=== PATIENT | male | born 1945 | race Caucasian/White ===

== ENCOUNTER → 2016-05-26 | Outpatient (CLI) | payer OTHER | END | disposition home or self-care (01) | LOC: EDBD → PCVCCLINIC 12:59 | PROVIDERS: ATTEND Internal Medicine | DX: E78.5 Hyperlipidemia, unspecified (principal); I48.92 Unspecified atrial flutter; I10 Essential (primary) hypertension | CPT/HCPCS: 93005; G0463 ==

== ENCOUNTER → 2016-06-03 | Outpatient (CLI) | payer OTHER ==
[~2016-06-03] MED LIST: REGADENOSON 0.4 MG/5 ML DISP.SYRIN. IV ONE
== END | disposition home or self-care (01) ==
LOC: EDBD → PCVCIMAG 08:08
PROVIDERS: ATTEND Internal Medicine Cardiovascular Disease
DX: I48.92 Unspecified atrial flutter (principal); E78.5 Hyperlipidemia, unspecified; I10 Essential (primary) hypertension; I34.0 Nonrheumatic mitral (valve) insufficiency
CPT/HCPCS: 78452; 93005; 93017; 93306; A9500; G0463; J2785

== ENCOUNTER → 2019-02-03 | Outpatient (CLI) | payer BC | END | disposition home or self-care (01) | LOC: PCVCCLINIC 13:30 | PROVIDERS: ATTEND Internal Medicine Cardiovascular Disease | DX: E78.1 Pure hyperglyceridemia (principal); I34.0 Nonrheumatic mitral (valve) insufficiency; I10 Essential (primary) hypertension; G47.30 Sleep apnea, unspecified; R07.9 Chest pain, unspecified; R06.02 Shortness of breath | CPT/HCPCS: 36415; 80061; 93005; G0463 ==

== ENCOUNTER → 2019-02-17 | Outpatient (CLI) | payer BC ==
--- NOTE | 2019-02-17 18:35 | PCVCIMAG ---
APPROVED REPORT Study performed: 02/17/2019 11:31:00 EXAM: Comprehensive 2D, Doppler, and color-flow Echocardiogram Patient Location: Echo lab Room #: 2Status: routine BSA: 2.30 HR: 48 bpmBP: 148/60 mmHg Rhythm: NSR Other Information Study Quality: Adequate Risk Factors: Cardiac Risk Factors: HTN, Hyperlipidemia Indications Aortic Valve Disease Mitral Valve Disease 2D Dimensions IVSd: 9.20 (7-11mm)LVOT Diam: 20.14 (18-24mm) LVDd: 58.63 mm PWd: 11.37 (7-11mm)Ascending Ao: 35.16 (22-36mm) LVDs: 34.64 (25-40mm) Left Atrium: 42.17 (27-40mm) Aortic Root: 31.36 mm LV Single Plane 4CH: 63.70 % LV Single Plane 2CH: 76.72 % Biplane EF: 70.1 % Volumes Left Atrial Volume (Systole) Single Plane 4CH: 73.79 mLSingle Plane 2CH: 63.44 mL Biplane LA Volume: 70.00 mLLA ESV Index: 30.00 mL/m2 Aortic Valve AoV Peak Lefty.: 1.97 m/s AO Peak Gr.: 15.86 mmHgLVOT Max P.56 mmHg AO Mean Gr.: 8.22 mmHgLVOT Mean P.61 mmHg AO V2 Mean: 1.37 m/sLVOT Max V: 0.91 m/s AO V2 VTI: 47.23 cmLVOT Mean V: 0.60 m/s ALINA (VTI): 1.52 [id number] V1 VTI: 22.58 cm ALINA Vmax: 1.48 cm2 SV (LVOT): 71.87 mL Mitral Valve E/A Ratio: 1.1 MV Decel. Time: 219.67 ms MV E Max Lefty.: 0.82 m/s MV A Lefty.: 0.74 m/s IVRT: 77.85 ms TDI E/Lateral E': 10.25E/Medial E': 13.67 Medial E' Lefty.: 0.06 m/s Lateral E' Lefty.: 0.08 m/s Pulmonary Valve PV Peak Lefty.: 1.15 m/sPV Peak Gr.: 5.30 mmHg Pulmonary Vein P Vein S: 0.57 m/sP Vein A: 0.23 m/s P Vein D: 0.59 m/sP Vein A Dur.: 117.6 msec P Vein S/D Ratio: 0.97 Tricuspid Valve TR Peak Lefty.: 2.25 m/s TR Peak Gr.: 20.18 mmHg TV Vmax: 0.69 m/sPA Pressure: 27.00 mmHg Left Ventricle Left ventricle is mildly dilated. There is normal LV segmental wall motion. Borderline concentric left ventricular hypertrophy. The overall left ventricular systolic function appears normal. LVEF is 70%. The left ventricular diastolic function is normal. Right Ventricle The right ventricle is normal size. The right ventricular systolic function is normal. Atria The left atrium size is normal. Right atrium is mildly dilated. Aortic Valve Aortic valve is trileaflet. Aortic valve leaflets are mildly sclerotic with slightly reduced extention No aortic regurgitation is present. Mild aortic stenosis. Highest mean aortic valve gradient is 8.2 mmHg. Peak aortic valve gradient is 15.5_mmHg. Calculated ALINA by the continuity equation is 1.6_cm2. Mitral Valve The mitral valve is normal in structure. Trace mitral regurgitation. No evidence of mitral valve stenosis. Tricuspid Valve The tricuspid valve is normal in structure. Trace to mild tricuspid regurgitation with a PA pressure of 27 mmHg. Pulmonic Valve The pulmonary valve is normal in structure. Mild pulmonic regurgitation. Great Vessels The aortic root is normal in size. The ascending aorta is normal in size. IVC is normal in size and collapses >50% with inspiration. Pericardium There is no pericardial effusion. There is no pleural effusion. <Conclusion> Left ventricle is mildly dilated. Borderline concentric left ventricular hypertrophy. LVEF is 70%. The left ventricular diastolic function is normal. The right ventricle is normal size. Right atrium is mildly dilated. Aortic valve is trileaflet. Aortic valve leaflets are mildly sclerotic with slightly reduced extention Mild aortic stenosis. Highest mean aortic valve gradient is 8.2 mmHg. Peak aortic valve gradient is 15.5_mmHg. Calculated ALINA by the continuity equation is 1.6_cm2. Trace mitral regurgitation. Trace to mild tricuspid regurgitation with a PA pressure of 27 mmHg. The aortic root is normal in size. There is no pericardial effusion.
--- NOTE | 2019-02-17 18:36 | PCVCIMAG ---
APPROVED REPORT Imaging Protocol: Rest Tc-99m/Stress Tc-99m 1 day Study performed: 02/17/2019 12:44:02 Indication: Abnormal EKG, Atrial Fibrillation, Chest pain, Dyspnea Patient Location: Out-Patient Stress Nurse: Florence Perez RN SD Tech:Mnoika Powell [facility] Ht: 6 ft 0 in Wt: 240 lbs BSA: 2.30 m2 HR: 55 bpm BP: 164/72 mmHg BMI: 32.5 Rhythm: Sinus Bradycardia with NSST - T wave abnormalities Medical History Medical History: Hyperlipidemia Medications: Metoprolol, Dexilant, Pradaxa, Irbesartan, Pravastatin, Amlodipine Allergies: No known drug allergies Cardiac Risk Factors: Age Pretest Chest Pain Characteristics: No chest pain Exercise History: Indeterminate Meds Held (24 hrs): Metoprolol Resting Data Rest SPECT myocardial perfusion imaging was performed in supine position 45 minutes following the intravenous injection of 9.1 mCi of Tc-99m Sestamibi. Time of rest injection: 1220 Date: 02/17/2019 Administration Route: IV Administration Site: Right Hand Pharmacologic Stress Pharmacologic stress test was performed by injecting Regadenoson 0.4 mg IV push over 10-15 seconds immediately followed by the intravenous injection of 35.5 mCi of Tc-99m Sestamibi. Time of stress injection: 1315 Date: 02/17/2019 Administration Route: IV Administration Site: Right Hand Gated Stress SPECT was performed 45 minutes after stress injection. The images were gated to evaluate regional wall motion and calculate left ventricular ejection fraction. Stress Test Details Stress Test: Pharmacologic stress testing performed using 0.4 mg of regadenoson per 5 mL given IV over 10 seconds. Reason for pharmacologic stress test: physical limitation. HRMax Heart Rate (APMHR): 147 bpm Resting HR: 55 bpmTarget HR (85% APMHR): 124 bpm Max HR Achieved: 75 bpm % of APMHR: 51 HR response to stress: 164 BP Resting BP: 72/132 mmHg Max BP: 62/142 mmHg Recovery BP: 65/ mmHg ECG Resting ECG: Sinus Bradycardia with NSST - T wave abnormalities Stress ECG: Sinus Rhythm, nonspecific ST-T abnormalities Recovery ECG: Sinus Rhythm, nonspecific ST-T abnormalities Clinical Reason for Termination: Completed protocol Stress Symptoms: Dyspnea, Lightheaded Symptoms resolved during recovery. Stress ECG Conclusion ECG: Non-ischemic Study Quality Study: Good Study Data Post stress, the left ventricular ejection was 69%.. SSS: 1 SRS: 0 SDS: 1 TID = 1.06. Perfusion No evidence of stress induced ischemia or prior myocardial infarction. Wall Motion Normal left ventricular size and function with no regional wall motion abnormalities. Nuclear Conclusion No evidence of stress induced ischemia or prior myocardial infarction. Normal left ventricular size and function with no regional wall motion abnormalities. Post stress, the left ventricular ejection was 69%. No change since prior study dated May 2016. Interpreted by: Stuart Vaca MD Electronically Approved: 02/17/2019 15:17:37 <Conclusion> ECG: Non-ischemic
== END | disposition home or self-care (01) ==
LOC: PCVCIMAG 11:30
PROVIDERS: ATTEND Internal Medicine Cardiovascular Disease
DX: I08.8 Other rheumatic multiple valve diseases (principal); I48.92 Unspecified atrial flutter; I48.91 Unspecified atrial fibrillation; K21.9 Gastro-esophageal reflux disease without esophagitis; R94.31 Abnormal electrocardiogram [ECG] [EKG]; E78.5 Hyperlipidemia, unspecified; I10 Essential (primary) hypertension
CPT/HCPCS: 78452; 93017; 93306; A9500; J2785